=== PATIENT | male | born 1990 | race Two or more races ===

== ENCOUNTER 2016-10-08 00:38 | Day surgery (SDC) | payer OTHER ==
[~2016-10-08] VITALS: Ht 167.6 cm; Wt 69.0 kg
[2016-10-08] MEDS ORDERED: fentaNYL-PF 50 mCg/mL 2 mL Inj IVPUSH PRN (06:00)
[2016-10-08] MEDS ORDERED: Sodium Chloride LOK Flush 10 mL Syringe IV PRN (06:00)
[2016-10-08 10:30] VITALS: BP 127/80; PULSE 105; RESP 16; O2SAT 100
[2016-10-08] MEDS: 0.9% Sodium Chloride 1,000 ML IV SCH ×2 (11:02→11:24)
[2016-10-08 11:29] VITALS: BP 95/64; PULSE 87; RESP 14; O2SAT 98
[2016-10-08 11:39] VITALS: BP 107/69; PULSE 87; RESP 14; O2SAT 98
--- NOTE | 2016-10-08 23:21 | ENDO ---
[address] [address] ENDOSCOPY PROCEDURE PATIENT: VIVIAN MARCELO : 1990 MR#: [id number] ADMIT: 10/08/2016 JOB ID: [id number] DATE OF SERVICE: 10/08/2016 TYPE OF OPERATION: Colonoscopy with biopsy. PREOPERATIVE DIAGNOSIS(ES): Bloody diarrhea. POSTOPERATIVE DIAGNOSIS(ES): Loss of architecture and vascularity with ulcerations from 70 cm to the rectum concerning for ulcerative colitis, status post biopsy. ANESTHESIA: Fentanyl 125 mcg, Versed 6 mg IV administered. COMPLICATION: None. ESTIMATED BLOOD LOSS: Minimal. DESCRIPTION OF PROCEDURE: After risks and benefits explained to the patient, informed consent was obtained. After anesthesia administered, colonoscope was inserted from the rectum to the terminal ileum. Mucosa carefully examined. Prep of the patient was excellent. After procedure was done, the scope was withdrawn and the procedure terminated. FINDINGS: Upon inspection of the anus, there were no masses, hemorrhoids, ulcers, or fissures that were seen. Throughout the entire examination, there was loss of architecture and vascularity with ulcerations from 70 cm from the anus to the rectum, most concerning for ulcerative colitis. Several biopsies were taken in this region. The colon proximal to this appeared normal. Biopsies taken from random colon and also the terminal ileum. Terminal ileum also appeared normal. Retroflexion was not performed due to most likely active disease in the rectum. IMPRESSION: Loss of architecture and vascularity with ulcerations from 70 cm to the rectum concerning for ulcerative colitis, status post biopsy. RECOMMENDATIONS: 1. Start Lialda 2.4 g by mouth once a day. 2. Rowasa enema 6 g per rectal q.h.s. 3. Avoid lactose and dairy. 4. Follow up in GI clinic in one month after the patient starts taking his medications.
--- NOTE | 2016-10-11 10:40 | PATH ---
SURGICAL PATHOLOGY Attending Physician:Sharif Stevens MD CASE STATUS: Signed Out PATIENT NAME: VIVIAN MARCELO PID: [id number] : 1990 DATE COLLECTED:10/08/2016 20:39 SPECIMEN: 1: Ileum, Biopsy 2: Colon, Biopsy 3: Rectum, Biopsy CLINICAL HISTORY: 1). TERMINAL ILEUM BIOPSY 2). RANDOM COLON BIOPSY 3). COLON BIOPSY RECTUM 70CM FINAL DIAGNOSIS: 1.TERMINAL ILEUM BIOPSY: FRAGMENTS OF NORMAL-APPEARING TERMINAL ILEUM MUCOSA. Negative for granulomas. Negative for significant inflammation, dysplasia and malignancy. 2.RANDOM COLON BIOPSY: FRAGMENTS OF NORMAL-APPEARING COLON MUCOSA. Negative for significant architectural distortion. Negative for significant inflammation, dysplasia and malignancy. 3.COLON BIOPSY, RECTUM TO 70 CM: CHANGES OF CHRONIC ACTIVE COLITIS WITH FOCAL CRYPTITIS AND SCATTERED CRYPT ABSCESSES WITH FOCAL MUCOSAL EROSION. PROMINENT SUBMUCOSAL FOLLICULAR LYMPHOID HYPERPLASIA. Negative for granulomas. Negative for dysplasia and malignancy. ICD10 code K51.9 GROSS DESCRIPTION: The specimen is received in three formalin filled containers labeled with the patient's name. 1). The specimen is sublabeled "terminal ileum" and consists of 2 portions of tissue which aggregate to 0.3 x 0.3 x 0.2 CM. The specimen is entirely submitted in cassette 1A. 2). The specimen is sublabeled "random colon" and consists of 2 portions of tissue which aggregate to 0.5 x 0.3 x 0.2 CM. The specimen is entirely submitted in cassette 2A. 3). The specimen is sublabeled "colon rectum-70 CM" and consists of multiple portions of tissue which aggregate to 0.5 x 0.5 x 0.3 CM. The specimen is entirely submitted in cassettes 3A. 10/08/2016 [facility] MICRO DESCRIPTION: See diagnosis. ICD-9 CODES: CPT CODES: 1: 58446 2: 26198 3: 34199 Electronically Signed Out Bi Boggs MD [facility] Pathology [facility] [address], [place] [address] Technical component performed at [facility], [address], [place], [address]
== END 2016-10-08 23:59 | disposition home or self-care (01) ==
LOC: END 00:38
PROVIDERS: ATTEND Internal Medicine Gastroenterology
DX: K92.1 Melena (principal); K51.90 Ulcerative colitis, unspecified, without complications; R19.7 Diarrhea, unspecified; I45.6 Pre-excitation syndrome
CPT/HCPCS: 45380; G0500; J7030